=== PATIENT | male | born 1965 | race Two or more races ===

== ENCOUNTER 2025-03-06 01:26 | Emergency (ER) | payer MEDICAID, OTHER ==
[~2025-03-06] VITALS: Ht 185.4 cm; Wt 136.3 kg
[~2025-03-06 01:26] MED LIST: CAP125T; FURO40TA4; IBUP600T39; LOVA10TA54; MULT-13
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
[2025-03-06 01:45] LABS: Basophils # (auto) 0.1 10 ^3/uL (0-0.2); Basophils % (auto) 0.7 % (0.0-2.0); Eosinophils # (auto) 0.5 10 ^3/uL (0-0.8); Eosinophils % (auto) 4.9 % (0.0-7.0); Hematocrit 43.7 % (41.0-53.0); Hemoglobin 14.9 g/dL (13.5-17.5); Lymphocytes # (auto) 3.7 10 ^3/uL (0.4-5.4); Mean Corpuscular Hemoglobin 28.9 pg (28.0-32.0); Mean Corpuscular Hgb Conc. 34.2 g/dL (32.0-36.0); Mean Corpuscular Volume 84.4 fL (80.0-100.0); Monocytes # (auto) 0.6 10 ^3/uL (0-1.3); Monocytes % (auto) 5.6 % (0.0-12.0); Neutrophils # (auto) 5.6 10 ^3/uL (1.6-8.6); Neutrophils % (auto) 53.8 % (37.0-80.0); Nucleated Red Blood Cells % 0.2 %; Platelet Count (auto) 279 10^3/uL (140-450); Red Blood Cells 5.17 10^6/uL (4.5-5.90); Red Cell Distribution Width 14.5 % (11.8-14.3); White Blood Cell 10.4 10^3/uL (4.4-10.8)
[2025-03-06 02:05] LABS: Chloride 103 mmol/L (98-107); Potassium 3.6 mmol/L (3.5-5.1); Sodium 138 mmol/L (136-145)
[2025-03-06 02:06] LABS: Anion Gap 19 (5-15); Calcium 9.3 mg/dL (8.7-10.4)
[2025-03-06 02:10] LABS: Carbon Dioxide 16 mmol/L (20-31)
[2025-03-06 02:11] LABS: Glucose 179 mg/dL (74-106)
[2025-03-06 02:12] LABS: Blood Urea Nitrogen 16 mg/dL (9-23); Magnesium 1.6 mg/dL (1.6-2.6)
[2025-03-06 03:10] VITALS: BP 127/72; PULSE 83; RESP 19; TEMP 98.6
[2025-03-06] MEDS ORDERED: TRAZ1TAB12 PO (04:03)
[2025-03-06] MEDS ORDERED: HYDR50TA32 PO (04:03)
[2025-03-06] MEDS: LORazepam 2MG/ML-1ML VIAL IV ONE (04:26)
[2025-03-06] MEDS ORDERED: GABA300T4 PO (04:29)
[2025-03-06 04:34] VITALS: O2SAT 96
[2025-03-06] MEDS: GABAPENTIN 300 MG CAP PO ONE (04:44)
[2025-03-06] MEDS ORDERED: NIFE1TAB36 PO (04:44)
[2025-03-06] MEDS ORDERED: METO25TA93 PO (04:44)
== END 2025-03-06 04:51 | disposition home or self-care (01) ==
LOC: ER 01:26
DX: F43.0 Acute stress reaction (principal); I10 Essential (primary) hypertension; E78.5 Hyperlipidemia, unspecified; F32.A Depression, unspecified; F41.9 Anxiety disorder, unspecified; K21.9 Gastro-esophageal reflux disease without esophagitis; Z79.899 Other long term (current) drug therapy; Z98.890 Other specified postprocedural states
CPT/HCPCS: 36415; 80048; 83735; 84484; 85025

== ENCOUNTER 2025-03-07 13:56 | Inpatient (IN) | payer MEDICAID, OTHER ==
[~2025-03-07] VITALS: Ht 185.4 cm; Wt 150.0 kg
[~2025-03-07 13:56] MED LIST changes: +GABA300T4 PO; +HYDR50TA32 PO; +METO25TA93 PO; +NIFE1TAB36 PO; +TRAZ1TAB12 PO
[2025-03-07] MEDS: SODIUM CHLORIDE 0.9% 1,000 ML IV ONE (14:30)
[2025-03-07] MEDS: hydrALAZINE HCL 20 MG/ML VL IV ONE (14:30)
--- NOTE | 2025-03-07 14:51 | ED.PDOC ---
History of Present Illness HPI Comments 59-year-old male presents with a chief complaint of headache with dizziness and high blood pressure since this morning. Patient reports that his systolic blood pressure was in the 180's. States that he took his blood pressure medications as prescribed today. Chief Complaint: Headache Time Seen by MD: 14:11 Primary Care Provider: MONICA Reviewed Notes: Medications, Allergies Allergies: Uncoded Allergies: NASAL DECONGESTANT (Allergy, Mild, 05/06/11) Home Meds Active Scripts Nifedipine (Nifedipine ER) 30 Mg Tab, 30 MG PO DAILY for 90 Days, #90 TAB 3 Re fills Prov:PB OSORIO MD 03/06/25 Metoprolol Succinate (Metoprolol Succinate Er) 25 Mg Tab, 1 TAB PO DAILY, #90 TAB 3 Refills Prov:PB OSORIO MD 03/06/25 Gabapentin (Once-Daily) (Gabapentin) 300 Mg Tab, 300 MG PO Q6HP PRN, #90 TAB 3 Refills Prov:PB OSORIO MD 03/06/25 Hydroxyzine HCl (Hydroxyzine Hydrochloride) 50 Mg Tab, 50 MG PO QHSP PRN, #60 TAB Prov:PB OSORIO MD 03/06/25 Trazodone Hcl (Trazodone Hcl) 150 Mg Tab, 1 TAB PO QPM for 90 Days, #90 TAB 3 Refills Prov:PB OSORIO MD 03/06/25 Reported Medications Multiple Vitamins W/ Minerals (Vitamins & Minerals) Minerals Tab 05/06/11 Furosemide (Furosemide) 40 Mg Tab 05/06/11 Ibuprofen (Ibu) 600 Mg Tab 05/06/11 Lovastatin (Lovastatin) 10 Mg Tab 05/06/11 Captopril (Capoten) 12.5 Mg Tb 05/05/11 Information Source: Patient Mode of Arrival: Ambulatory Severity: Moderate Timing: Hours Duration: Since onset Prehospital treatment: None Past Medical History PAST MEDICAL HISTORY: Anxiety, Depression, GERD, High Lipids, HTN Family History Family History: Unknown Social History Smoker: Non-Smoker Alcohol: Occasionally Drugs: Denies Drug Use Lives In: Home Constitutional: denies: chills, diaphoresis, fatigue, fever, malaise, sweats, weakness, others EENTM: denies: blurred vision, double vision, ear bleeding, ear discharge, ear drainage, ear pain, ear ringing, eye pain, eye redness, hearing loss, mouth pain, mouth swelling, nasal discharge, nose bleeding, nose congestion, nose pain, photophobia, tearing, throat pain, throat swelling, voice changes, others Respiratory: denies: cough, hemoptysis, orthopnea, SOB at rest, shortness of breath, SOB with excertion, stridor, wheezing, others Cardiovascular: denies: chest pain, dizzy spells, diaphoresis, Dyspnea on exertion, edema, irregular heart beat, left arm pain, lightheadedness, palpitations, PND, syncope, others Gastrointestinal: denies: abdomen distended, abdominal pain, blood streaked bowels, constipated, diarrhea, dysphagia, difficulty swallowing, hematemesis, melena, nausea, poor appetite, poor fluid intake, rectal bleeding, rectal pain, vomiting, others Genitourinary: denies: burning, dysuria, flank pain, frequency, hematuria, in continence, penile discharge, penile sore, pain, testicle pain, testicle swelling, urgency, others Neurological: denies: dizziness, fainting, headache, left sided numbness, left sided weakness, numbness, paresthesia, pre-existing deficit, right sided numbness, right sided weakness, seizure, speech problems, tingling, tremors, weakness, others Musculoskeletal: denies: back pain, gout, joint pain, joint swelling, muscle pain, muscle stiffness, neck pain, others Integumetry: denies: bruises, change in color, change in hair/nails, dryness, laceration, lesions, lumps, rash, wounds, others Allergic/Immunocompromised: denies: Difficulty Healing, Frequent Infections, Hives, Itching, others Hematologic/Lymphatic: denies: anemia, blood clots, easy bleeding, easy bruising, swollen glands, others Endocrine: denies: excessive hunger, excessive sweating, excessive thirst, excessive urination, flushing, intolerance to cold, intolerance to heat, unexplained weight gain, unexplained weight loss, others Psychiatric: denies: anxiety, bipolar disorder, depression, hopeless, panic disorder, schizophrenia, sleepless, suicidal, others All Other Systems: Reviewed and Negative Physical Exam General Appearance: No Apparent Distress, Normal HEENT: Normal ENT Inspection, Pharynx Normal, TMs Normal Neck: Full Range of Motion, Non-Tender, Normal, Normal Inspection Respiratory: Chest Non-Tender, Lungs Clear, No Accessory Muscle Use, No Respiratory Distress, Normal Breath Sounds Cardiovascular: No Edema, No JVD, No Murmur, No Gallop, Normal Peripheral Pulses, Regular Rate/Rhythm Breast Exam: Deferred Gastrointestinal: No Organomegaly, Non Tender, No Pulsatile Mass, Normal Bowel Sounds, Soft Genitalia: Deferred Pelvic: Deferred Rectal: Deferred Extremities: No calf tenderness, Normal capillary refill, Normal inspection, Normal range of motion, Non-tender, No pedal edema Musculoskeletal : Apperance: Normal Neurologic: Alert, propagation manager II-XII nml as Tested, No Motor Deficits, Normal Affect, Normal Mood, No Sensory Deficits Cerebellar Function: Normal Reflexes: Normal Skin: Dry, Normal Color, Warm Lymphatic: No Adenopathy Was a procedure done? Was a procedure done?: No Differential Dx Considerations may include: CVA, migraine, ACS, TIA X-Ray, Labs, Meds, VS Vital Signs Date Time Temp Pulse Resp B/P (MAP) Pulse Ox O2 Delivery O2 Flow Rate FiO2 03/07/25 16:27 98.3 93 20 164/89 (114) 94 98.3 03/07/25 14:13 97.9 106 18 143/84 (103) 98 97.9 03/07/25 14:08 108 Lab Test 03/07/25 15:40 03/07/25 14:50 03/07/25 14:06 03/07/25 14:05 Range/Units Troponin I High Sensitivity 6 4 </=54 ng/L White Blood Count 9.3 4.4-10.8 10^3/uL Red Blood Count 5.00 4.5-5.90 10^6/uL Hemoglobin 14.8 13.5-17.5 g/dL Hematocrit 42.0 41.0-53.0 % Mean Corpuscular Volume 84.1 80.0-100.0 fL Mean Corpuscular Hemoglobin 29.6 28.0-32.0 pg Mean Corpuscular Hemoglobin Concent 35.2 32.0-36.0 g/dL Red Cell Distribution Width 14.6 H 11.8-14.3 % Platelet Count 336 140-450 10^3/uL Mean Platelet Volume 9.9 6.9-10.8 fL Neutrophils (%) (Auto) 59.5 37.0-80.0 % Lymphocytes (%) (Auto) 29.9 10.0-50.0 % Monocytes (%) (Auto) 6.6 0.0-12.0 % Eosinophils (%) (Auto) 3.3 0.0-7.0 % Basophils (%) (Auto) 0.7 0.0-2.0 % Neutrophils # (Auto) 5.5 1.6-8.6 10 ^3/uL Lymphocytes # (Auto) 2.8 0.4-5.4 10 ^3/uL Monocytes # (Auto) 0.6 0-1.3 10 ^3/uL Eosinophils # (Auto) 0.3 0-0.8 10 ^3/uL Basophils # (Auto) 0.1 0-0.2 10 ^3/uL Nucleated Red Blood Cells 0.8 % Sodium Level 141 136-145 mmol/L Potassium Level 3.9 3.5-5.1 mmol/L Chloride Level 107 98-107 mmol/L Carbon Dioxide Level 20 20-31 mmol/L Anion Gap 14 5-15 Blood Urea Nitrogen 15 9-23 mg/dL Creatinine 0.96 0.700-1.30 mg/dL Glomerular Filtration Rate Calc 90 >90 mL/min BUN/Creatinine Ratio 15.6 10.0-20.0 Serum Glucose 133 H 74-106 mg/dL Calcium Level 10.3 8.7-10.4 mg/dL Urine Color Yellow Yellow Urine Clarity Turbid H Clear Urine pH 5.5 5.0-9.0 Urine Specific [place] 1.027 1.001-1.035 Urine Protein Trace H Negative Urine Ketones 1+ H Negative Urine Blood Negative Negative /uL Urine Nitrite Negative Negative Urine Bilirubin Negative Negative Urine Urobilinogen Normal Negative mg/dL Urine Leukocyte Esterase Negative Negative /uL Urine RBC 1 0 - 3 /hpf Urine Microscopic WBC 3 0-3 /HPF Urine Squamous Epithelial Cells Few <5 /hpf Urine Bacteria None seen None Seen /hpf Urine Mucus Few None Seen Urine Glucose Normal Normal mg/dL POC Glucose 130 H 70-106 mg/dl Time of 1ST Reevaluation: 14:41 Reevaluation 1ST: Unchanged Patient Education/Counseling: Diagnosis, Treatment, Need For Follow Up Family Education/Counseling: No Family Present Departure 1 Departure Time of Disposition: 17:23 (Patient presented with headache and near-syncope today and should be admitted. Data: 1. I ordered and reviewed the result of at least 3 labs including a CBC, BMP, and troponin. 2. I independently interpreted the following tests: EKG which shows a normal sinus rhythm and a chest x-ray which shows benign chest and a CT head which shows benign brain.Risk:This patient has a high risk of morbidity due to further diagnostic testing or treatment and may suffer from an acute cardiac, neurologic, or infectious disorder. Rationale: Patient should be admitted to the hospital for further management.) Impression: Primary Impression: Near syncope Additional Impressions: Acute chest pain Shortness of breath Hypertensive urgency Disposition: ADMITTED INPATIENT Admit to: Med Surg Condition: Serious Critical Care Note Critical Care Time?: Yes Critical care comment: Hypertensive urgency Authorized and Performed by: Paola Boogie MD Total critical care time: Approximately 39 minutes Due to a high probability of clinically significant, life threatening deterioration, the patient required my highest level of preparedness to intervene emergently and I personally spent this critical care time directly and personally managing the patient. This critical care time included obtaining a history; examining the patient; pulse oximetry; ordering and review of studies; arranging urgent treatment with development of a management plan; evaluation of patient's response to treatment; frequent reassessment; and, discussions with other providers. This critical care time was performed to assess and manage the high probability of imminent, life-threatening deterioration that could result in multi-organ failure. It was exclusive of separately billable procedures and treating other patients and teaching time. Please see my other sections and the rest of the note for further information on patient assessment and treatment. Stability Stability form required: No Heart Score Heart Score: Heart Score Response (Comments) Value History Moderate Suspicious 1 EKG Repolarization Disturb 1 Age 45-64 1 Risk Factors 1 or 2 risk factors 1 Troponin Normal limit 0 Total 4 I personally scribed for PAOLA BOOGIE MD ([email or web address]) on 03/07/25 at 14:51. Electronically submitted by Tu Allen ([email or web address]). PAOLA BOOGIE MD Mar 07, 2025 14:51
--- NOTE | 2025-03-07 15:04 | DVH ---
CLINICAL INFORMATION: Hypertension. TECHNIQUE: Axial imaging was obtained through the brain without contrast. Coronal and sagittal reform atted images were obtained, reviewed, and stored. Images were reviewed in brain and bone windows. Al l CT scans at this medical facility are performed using dose modulation techniques as appropriate to a performed exam including the following: Automated exposure control was utilized; adjustment of the MA and/or KV according to patient size; and use of iterative reconstruction technique. CTDIvol = 67.1 1 mGy DLP = 1322.26 mGy-cm COMPARISON: None FINDINGS: There is no acute intracranial hemorrhage. No mass effect or midline shift. The ventricles and sulci are within normal limits in size for age. Basal cisterns are patent. The calvarium is unre markable. Mild mucosal thickening of the paranasal sinuses. IMPRESSION: No CT evidence of acute intracranial abnormality.
--- NOTE | 2025-03-07 15:05 | DVH ---
CHEST RADIOGRAPH Indication: htn Technique: Single frontal view of the chest was obtained Comparison: None FINDINGS: Lines and Tubes: None Lungs: No focal consolidation. Pleura: No effusion. No pneumothorax. Cardiomediastinal contours: Unremarkable Bones: Chronic right-sided rib fractures. IMPRESSION: No acute cardiopulmonary disease.
[2025-03-07 15:13] LABS: Potassium 3.9 mmol/L (3.5-5.1); Sodium 141 mmol/L (136-145)
[2025-03-07 15:14] LABS: Anion Gap 14 (5-15)
[2025-03-07 15:15] LABS: Calcium 10.3 mg/dL (8.7-10.4); Carbon Dioxide 20 mmol/L (20-31); Chloride 107 mmol/L (98-107)
[2025-03-07 15:20] LABS: BUN/Creatinine Ratio 15.6 (10.0-20.0); Blood Urea Nitrogen 15 mg/dL (9-23)
[2025-03-07 15:21] LABS: Glucose 133 mg/dL (74-106)
[2025-03-07 15:25] LABS: Basophils # (auto) 0.1 10 ^3/uL (0-0.2); Basophils % (auto) 0.7 % (0.0-2.0); Eosinophils # (auto) 0.3 10 ^3/uL (0-0.8); Eosinophils % (auto) 3.3 % (0.0-7.0); Hemoglobin 14.8 g/dL (13.5-17.5); Lymphocytes # (auto) 2.8 10 ^3/uL (0.4-5.4); Lymphocytes % (auto) 29.9 % (10.0-50.0); Mean Corpuscular Hemoglobin 29.6 pg (28.0-32.0); Mean Corpuscular Hgb Conc. 35.2 g/dL (32.0-36.0); Mean Corpuscular Volume 84.1 fL (80.0-100.0); Monocytes # (auto) 0.6 10 ^3/uL (0-1.3); Monocytes % (auto) 6.6 % (0.0-12.0); Neutrophils # (auto) 5.5 10 ^3/uL (1.6-8.6); Neutrophils % (auto) 59.5 % (37.0-80.0); Nucleated Red Blood Cells % 0.8 %; Platelet Count (auto) 336 10^3/uL (140-450); Red Cell Distribution Width 14.6 % (11.8-14.3); White Blood Cell 9.3 10^3/uL (4.4-10.8)
[2025-03-07 16:38] LABS: Urine Bacteria None Seen /hpf (None Seen)
[2025-03-07 17:13] LABS: Urine Blood Negative /uL (Negative); Urine Clarity Turbid (Clear); Urine Color Yellow (Yellow); Urine Mucus FEW (None Seen); Urine Protein, UAD TRACE (Negative); Urine Specific Gravity 1.027 (1.001-1.035); Urine Squamous Epithelial Cell FEW /hpf (<5); Urine Urobilinogen Normal (Negative); Urine WBC 3 /HPF (0-3); Urine pH 5.5 (5.0-9.0)
[2025-03-07] MEDS ORDERED: MORPHINE SULFATE INJ 2 MG/ml SYRG IV PRN (19:00)
[2025-03-07] MEDS ORDERED: NITROGLYCERIN 0.4 MG SL TAB SL PRN (19:00)
[2025-03-07] MEDS ORDERED: LISINOPRIL 5 MG TAB PO ONE (19:30)
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
[2025-03-07] MEDS: PANTOPRAZOLE 40 MG/10 ML VIAL INJ IV ONE (19:55)
[2025-03-07] MEDS: GABAPENTIN 300 MG CAP PO PRN (20:49)
[2025-03-07 21:12] LABS: Benzodiazephine Screen, Urine Neg (NEGATIVE)
[2025-03-07 21:13] LABS: Amphetamine Screen, Urine Neg (NEGATIVE); Barbiturate Scree,Urine Neg (NEGATIVE); Cocaine Screen, Urine Neg (NEGATIVE)
[2025-03-07 21:14] LABS: Cannabinoid Screen, Urine Neg (NEGATIVE); Opiate Scree,Urine Neg (NEGATIVE); Phencyclidine Screen, Urine Neg (NEGATIVE)
[2025-03-07] MEDS: ENOXAPARIN SOD 100 MG/1 ML SYRINGE SC SCH (22:00)
[2025-03-07] MEDS: traZODone HCL 50 MG TAB PO SCH (22:09)
[2025-03-07 22:39] VITALS: O2SAT 96
[2025-03-08] VITALS (7 sets, daily range): BP systolic 135–191; BP diastolic 76–98; PULSE 75–90; RESP 12–22; TEMP 97.4–98; O2SAT 92–99
[2025-03-08] MEDS: hydrALAZINE HCL 10 MG TAB PO PRN
[2025-03-08] MEDS: LISINOPRIL 5 MG TAB PO ONE
[2025-03-08] MEDS: PNEUMOCOCCAL VACC POLYS 25 MCG/0.5 ML VIAL IM ONE (01:30)
[2025-03-08] MEDS: ACETAMINOPHEN 325 MG TAB PO PRN (02:04)
[2025-03-08] MEDS: GABAPENTIN 300 MG CAP PO ONE (02:45)
[2025-03-08] MEDS: PANTOPRAZOLE 40 MG/10 ML VIAL INJ IV ONE (02:45)
[2025-03-08] MEDS: HYDROcodone-ACET 5/325MG TAB PO ONE ×2 (02:45→13:42)
[2025-03-08] MEDS: CALCIUM CARB 500 MG CHEW TAB PO ONE (03:01)
--- NOTE | 2025-03-08 06:49 | ECG ---
[facility] Test Date: 2025-03-07 Test Time: 14:08:00 Pat Name: TESSA JACKSNO Department: ER Room: 0276T Gender: M Deputy Director: TRIXIE : 1965 Requested By: PAOLA JOHNSON Order Number: [id number] Reading MD: Tejas Pablo Measurements Intervals [place] Rate: 108 P: 0 MI: 0 QRS: 144 QRSD: 90 T: -13 QT: 334 QTc: 448 Interpretive Statements Sinus tachycardia Abnormal R-wave progression, late transition Inferior infarct, age indeterminate Electronically Signed On 03-08-2025 17:41:11 PDT by Tejas Pablo Please click the below link to view image of tracing.
[2025-03-08] MEDS: HYDROcodone-ACET 5/325MG TAB PO PRN (08:41)
[2025-03-08] MEDS: PANTOPRAZOLE 40 MG/10 ML VIAL INJ IV SCH (09:58)
[2025-03-08] MEDS: METOPROLOL SUCCINATE XL 50 MG TAB PO SCH (09:59)
[2025-03-08] MEDS: NIFEdipine ER 30 MG TAB PO SCH (09:59)
[2025-03-08] MEDS: FUROSEMIDE 40 MG TAB PO SCH (09:59)
[2025-03-08] MEDS ORDERED: METF-371 PO (11:42)
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
[2025-03-08] MEDS: ACCU-CHEK COMFORT CURVE STRIP VI SCH ×2 (12:10→17:02)
[2025-03-08 14:00] LABS: LDL Cholesterol 105 mg/dL (< 100); Triglycerides 163 mg/dL (< 150)
[2025-03-08 14:01] LABS: Cholesterol 154 mg/dL (< 200)
[2025-03-08 14:03] LABS: HDL Cholesterol 31 mg/dL (40-59)
[2025-03-08 14:43] LABS: Albumin 4.7 g/dL (3.2-4.8); Alkaline Phosphatase 75 U/L (46-116); Total Protein 7.7 g/dL (5.7-8.2)
[2025-03-08 14:52] LABS: Alanine Aminotransferase 57 U/L (7-40); Aspartate Aminotransferase 36 U/L (<34); Bilirubin, Direct < 0.1 mg/dL (<0.3); Bilirubin, Total 0.3 mg/dL (0.2-1.0)
[2025-03-08] MEDS ORDERED: DEXTROSE (50%) 50ML SYRG IV PRN (15:15)
[2025-03-08] MEDS: LABETALOL HCL 20 MG/4 ML VL IV ONE (15:53)
[2025-03-08] MEDS ORDERED: CLON-857 PO (16:18)
[2025-03-08] MEDS ORDERED: clonazePAM 0.5 MG TAB PO PRN (16:30)
[2025-03-08] MEDS: InsuLIN REG 1unit/0.01ml Soln (100units/ml) SC SCH (17:08)
--- NOTE | 2025-03-08 20:01 | DVHPN2 ---
Subjective having some headaches but better Reviewed: H&P, Labs Changes from previous H/P or p: No Changes Objective Vitals Vital Signs Date Time Temp Pulse Resp B/P (MAP) Pulse Ox O2 Delivery O2 Flow Rate FiO2 03/08/25 16:20 97.8 75 17 137/76 (96) 97 97.8 03/08/25 01:05 Room Air* 0 21 Intake/Output Intake and Output 03/08/25 07:00 Intake Total 1000 ml Balance 1000 ml IV Total 1000 ml General Appearance: Alert, Oriented X3 HEENT: Atraumatic Lungs: Clear to auscultation Cardiovascular: Regular rate, Normal S1, Normal S2 Abdomen: Normal bowel sounds Medications Current Medications Medications Dose Ordered Sig/Heather Route Start Time Stop Time Status Last Admin Dose Admin Nitroglycerin 0.4 mg Q5MINP PRN SL 03/07/25 19:00 Morphine Sulfate 2 mg Q30M PRN IV 03/07/25 19:00 Furosemide 40 mg DAILY PO 03/08/25 10:00 03/08/25 09:59 40 MG Nifedipine 30 mg DAILY PO 03/08/25 10:00 03/08/25 09:59 30 MG Gabapentin 300 mg Q6HP PRN PO 03/07/25 19:30 03/08/25 15:21 300 MG Metoprolol Succinate 25 mg DAILY PO 03/08/25 10:00 03/08/25 09:59 25 MG Trazodone HCl 150 mg HS PO 03/07/25 22:00 Hydralazine HCl 10 mg Q6HP PRN PO 03/07/25 19:30 03/08/25 07:56 10 MG Enoxaparin Sodium 100 mg Q12HR SC 03/07/25 22:00 03/08/25 10:00 100 MG Pantoprazole Sodium 40 mg DAILY IV 03/08/25 10:00 03/08/25 09:58 40 MG Acetaminophen 650 mg Q4HPRN PRN PO 03/08/25 01:45 03/08/25 02:04 650 MG Acetaminophen/ Hydrocodone Bitart 1 tab Q6HPRN PRN PO 03/08/25 08:15 03/08/25 15:22 1 TAB Diagnostic Test (Pha) 1 strip ACHS 03/08/25 17:00 03/08/25 17:02 1 STRIP Insulin Human Regular ACHS SC 03/08/25 17:00 03/08/25 17:08 3 UNITS Dextrose 50 ml UD PRN IV 03/08/25 15:15 Clonazepam 1 mg Q8HP PRN PO 03/08/25 16:45 Laboratory Results Laboratory Tests 03/07/25 14:50 Chemistry Test 03/08/25 13:28 Albumin 4.7 g/dL (3.2-4.8) Total Protein 7.7 g/dL (5.7-8.2) Lipid panel Test 03/08/25 13:28 Cholesterol Level 154 mg/dL (< 200) HDL Cholesterol 31 mg/dL (40-59) L Triglycerides Level 163 mg/dL (< 150) H LFT Test 03/08/25 13:28 Alanine Aminotransferase (ALT) 57 U/L (7-40) H Alkaline Phosphatase 75 U/L (46-116) Aspartate Amino Transferase (AST) 36 U/L (<34) H Direct Bilirubin < 0.1 mg/dL (<0.3) Total Bilirubin 0.3 mg/dL (0.2-1.0) Urinalysis Test 03/07/25 14:06 Urine Color Yellow (Yellow) Urine Clarity Turbid (Clear) H Urine pH 5.5 (5.0-9.0) Urine Specific [place] 1.027 (1.001-1.035) Urine Protein Trace (Negative) H Urine Ketones 1+ (Negative) H Urine Blood Negative /uL (Negative) Urine Nitrite Negative (Negative) Urine Bilirubin Negative (Negative) Urine Urobilinogen Normal mg/dL (Negative) Urine Leukocyte Esterase Negative /uL (Negative) Urine RBC 1 /hpf (0 - 3) Urine Microscopic WBC 3 /HPF (0-3) Urine Squamous Epithelial Cells Few /hpf (<5) Urine Bacteria None seen /hpf (None Seen) Urine Mucus Few (None Seen) Urine Glucose Normal mg/dL (Normal) Assessment/Plan Assessment/Plan Hypertensive Emergency Severe headache secondary to above Diabetes mellitus, GERD Sciatica New AFIB, patient unware of this diagnosis - [id number] : 2 in a male Morbid obesity, BMI: 42 ? CHF Insulin per protocol Cardiology consulted echo pending continue oral nifedipine, metoprolol, lasix Plan discussed with: Patient My Orders Orders - GUALBERTO TRIANA MD Procedure Category Date Status Time Ac Mild Insulin Scale ZANE 03/08/25 In Process (Not Rx) 11:36 Glucose Blood PHA 03/08/25 In Process (Accu-Chek Comfort 17:00 Insulin R (Human) PHA 03/08/25 In Process (Insulin R) 17:00 Dextrose 50% Syringe PHA 03/08/25 In Process 15:15 Clonazepam Tablet PHA 03/08/25 In Process (Klonopin Tablet) 16:45 Date of Service: Mar 08, 2025 Billing Provider: GUALBERTO TRIANA MD Common Visit Codes: [id number] INP/OBS CARE(HIGH) GUALBERTO TRIANA MD Mar 08, 2025 20:01
[2025-03-09] VITALS (8 sets, daily range): BP systolic 122–158; BP diastolic 57–90; PULSE 70–110; RESP 17–19; TEMP 97.5–98.6; O2SAT 93–96
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
[2025-03-09] MEDS: clonazePAM 0.5 MG TAB PO PRN (03:38)
[2025-03-09] MEDS: REGADENOSON 0.4 MG/5 ML SYRG IV ONE ×2 (08:53→09:08)
--- NOTE | 2025-03-09 09:05 | DVHSR ---
APPROVED REPORT EXAM: Two-dimensional and M-mode echocardiogram with Doppler and color Doppler. Blood Pressure: 135/77 mmHg INDICATION CHF RISK FACTORS Height: 71, Weight: 318 DIMENSIONS LVDd (3.8-5.7cm)LA (2D)4.3 (1.9-4.0cm)Aortic Root4.3 (2.0-3.7cm) LVDs (2.5-4.0cm)LA (MM) (1.9-4.0cm)Aortic Cusp Exc1.9 (1.5-2.0cm) EF (%) 61.0 (55-70%)Rt. Atrium3.5 (1.9-4.0cm)Asc. Aorta cm Mitral Valve MitralMitral Stenosis E wave0.71m/sMV Mean GR.mmHg A wave1.02m/sMV Peak GR.mmHg E/A ratio0.72D MVAcm2 DECEL [id number] 1/2 [id number] IVRTmsDop MVA3.14cm2 Aortic Valve Aortic ValveAortic Stenosis V11.61m/Ba Mean GR.5mmHg V21.65m/Ba Peak GR.11mmHg LVOT Diameter2.4 (1.8-2.4cm)Doppler AVA4.41cm2 Pulmonic Valve V21.35m/s Other Information Technically limited study due to body habitus. Conclusion LV EF IS 65% SLIGHTLY DILATED LA AORTIC SCLEROSIS BUT NO STENOSIS NORMAL MV,TV AND PV NO EFFUSION NORMAL RV FUNCTION
[2025-03-09 11:41] LABS: Hepatitis B Surface Antigen Negative (Negative); Hepatitis C Antibody Negative (Negative)
--- NOTE | 2025-03-09 16:17 | DVHPN2 ---
Subjective having some headaches but better Reviewed: H&P, Labs Changes from previous H/P or p: No Changes Objective Vitals Vital Signs Date Time Temp Pulse Resp B/P (MAP) Pulse Ox O2 Delivery O2 Flow Rate FiO2 03/09/25 12:45 97.7 110 17 128/76 (93) 94 97.7 03/09/25 08:00 Room Air* 0 21 Intake/Output Intake and Output 03/09/25 07:00 Intake Total 1900 ml Balance 1900 ml Intake Oral 1900 ml # Voids 7 # Bowel Movements 1 General Appearance: Alert, Oriented X3 HEENT: Atraumatic Lungs: Clear to auscultation Cardiovascular: Regular rate, Normal S1, Normal S2 Abdomen: Normal bowel sounds Medications Current Medications Medications Dose Ordered Sig/Heather Route Start Time Stop Time Status Last Admin Dose Admin Nitroglycerin 0.4 mg Q5MINP PRN SL 03/07/25 19:00 Morphine Sulfate 2 mg Q30M PRN IV 03/07/25 19:00 Furosemide 40 mg DAILY PO 03/08/25 10:00 03/09/25 09:52 40 MG Nifedipine 30 mg DAILY PO 03/08/25 10:00 03/09/25 09:52 30 MG Gabapentin 300 mg Q6HP PRN PO 03/07/25 19:30 03/08/25 15:21 300 MG Metoprolol Succinate 25 mg DAILY PO 03/08/25 10:00 03/09/25 09:52 25 MG Trazodone HCl 150 mg HS PO 03/07/25 22:00 03/08/25 23:53 150 MG Hydralazine HCl 10 mg Q6HP PRN PO 03/07/25 19:30 03/08/25 07:56 10 MG Enoxaparin Sodium 100 mg Q12HR SC 03/07/25 22:00 03/09/25 09:51 100 MG Pantoprazole Sodium 40 mg DAILY IV 03/08/25 10:00 03/09/25 09:51 40 MG Acetaminophen 650 mg Q4HPRN PRN PO 03/08/25 01:45 03/09/25 09:53 650 MG Acetaminophen/ Hydrocodone Bitart 1 tab Q6HPRN PRN PO 03/08/25 08:15 03/08/25 22:07 1 TAB Diagnostic Test (Pha) 1 strip ACHS 03/08/25 17:00 03/09/25 11:45 1 STRIP Insulin Human Regular ACHS SC 03/08/25 17:00 03/09/25 11:45 4 UNITS Dextrose 50 ml UD PRN IV 03/08/25 15:15 Clonazepam 1 mg Q8HP PRN PO 03/08/25 16:45 03/09/25 03:38 1 MG Laboratory Results Laboratory Tests 03/07/25 14:50 Urinalysis Test 03/07/25 14:06 Urine Color Yellow (Yellow) Urine Clarity Turbid (Clear) H Urine pH 5.5 (5.0-9.0) Urine Specific [place] 1.027 (1.001-1.035) Urine Protein Trace (Negative) H Urine Ketones 1+ (Negative) H Urine Blood Negative /uL (Negative) Urine Nitrite Negative (Negative) Urine Bilirubin Negative (Negative) Urine Urobilinogen Normal mg/dL (Negative) Urine Leukocyte Esterase Negative /uL (Negative) Urine RBC 1 /hpf (0 - 3) Urine Microscopic WBC 3 /HPF (0-3) Urine Squamous Epithelial Cells Few /hpf (<5) Urine Bacteria None seen /hpf (None Seen) Urine Mucus Few (None Seen) Urine Glucose Normal mg/dL (Normal) Assessment/Plan Assessment/Plan Hypertensive Emergency Severe headache secondary to above Diabetes mellitus, GERD Sciatica New AFIB, patient unware of this diagnosis - [id number] : 2 in a male Morbid obesity, BMI: 42 ? CHF Insulin per protocol Cardiology consulted>stress test today echo reviewed and normal EF continue oral nifedipine, metoprolol, lasix Dispo: Possible DC tomorrow if stress test negative and cardio clears Plan discussed with: Patient My Orders Orders - GUALBERTO TRIANA MD Procedure Category Date Status Time Clonazepam Tablet PHA 03/08/25 In Process (Klonopin Tablet) 16:45 Date of Service: Mar 09, 2025 Billing Provider: GUALBERTO TRIANA MD Common Visit Codes: [id number] INP/OBS CARE(HIGH) GUALBERTO TRIANA MD Mar 09, 2025 16:17
--- NOTE | 2025-03-09 17:16 | DVHPNRES ---
Progress Note Date Seen: Mar 09, 2025 Resident Creating Document: MARTHA SINGH RESIDENT Medical Necessity Reason Pt with a Central, PICC or Fol: No Subjective Review of Systems Improvement in symptoms, denies any active ongoing palpitations or shortness of Breath. Objective vital signs Vital Sign Date Time Temp Pulse Resp B/P (MAP) Pulse Ox O2 Delivery O2 Flow Rate FiO2 03/09/25 16:35 97.8 83 17 122/77 (92) 93 97.8 03/09/25 08:00 Room Air* 0 21 Total Intake and Output 03/08/25 03/08/25 03/09/25 15:00 23:00 07:00 Intake Total 1000 ml 900 ml Balance 1000 ml 900 ml medications Current Medications Medications Dose Ordered Sig/Heather Route Start Time Stop Time Status Last Admin Dose Admin Nitroglycerin 0.4 mg Q5MINP PRN SL 03/07/25 19:00 Morphine Sulfate 2 mg Q30M PRN IV 03/07/25 19:00 Furosemide 40 mg DAILY PO 03/08/25 10:00 03/09/25 09:52 40 MG Nifedipine 30 mg DAILY PO 03/08/25 10:00 03/09/25 09:52 30 MG Gabapentin 300 mg Q6HP PRN PO 03/07/25 19:30 03/08/25 15:21 300 MG Metoprolol Succinate 25 mg DAILY PO 03/08/25 10:00 03/09/25 09:52 25 MG Trazodone HCl 150 mg HS PO 03/07/25 22:00 03/08/25 23:53 150 MG Hydralazine HCl 10 mg Q6HP PRN PO 03/07/25 19:30 03/08/25 07:56 10 MG Enoxaparin Sodium 100 mg Q12HR SC 03/07/25 22:00 03/09/25 09:51 100 MG Pantoprazole Sodium 40 mg DAILY IV 03/08/25 10:00 03/09/25 09:51 40 MG Acetaminophen 650 mg Q4HPRN PRN PO 03/08/25 01:45 03/09/25 09:53 650 MG Acetaminophen/ Hydrocodone Bitart 1 tab Q6HPRN PRN PO 03/08/25 08:15 03/08/25 22:07 1 TAB Diagnostic Test (Pha) 1 strip ACHS 03/08/25 17:00 03/09/25 16:38 1 STRIP Insulin Human Regular ACHS SC 03/08/25 17:00 03/09/25 16:39 2 UNITS Dextrose 50 ml UD PRN IV 03/08/25 15:15 Clonazepam 1 mg Q8HP PRN PO 03/08/25 16:45 03/09/25 03:38 1 MG Examination General Appearance: Cooperative. Well developed. Well nourished. NAD Head Exam: Normal inspection Neck Exam: Normal inspection. Non-tender. Normal alignment Pulmonary/Respiratory: Chest non-tender. Clear bilateral breath sounds, no crackles, no wheezing. Cardiovascular/Chest: Regular rate and rhythm. No murmurs. Peripheral Pulses: 2+ Radial (R). 2+ Radial (L). 2+ Pedal (R). 2+ Pedal (L) Abdominal Exam: Normal bowel sounds. Soft. normal abdomen, no visible veins, Nontender. No hepatospenomegaly. No masses Ankle Exam: Negative ankle edema Lower extremities: 1+ lower extremity edema Neuro/Mental Status: A&O x4. Coherent. Thoughts/Psych: Normal thought pattern. Sad affect, tearful affect. Denies any suicidal or homicidal ideation Skin Exam: Normal inspection. Normal color. Warm. Dry laboratory and microbiology Laboratory Tests 03/07/25 14:50 Test 03/07/25 14:50 Range/Units Serum Glucose 133 H 74-106 mg/dL Labs and/or images reviewed: Labs reviewed by me, Image(s) reviewed by me Problem List/Assessment/Plan Problem List/Assessment/Plan Hypertensive emergency Type 2 diabetes, A1c 8.4 ASCVD 39.8% Plan: Patient was noted to be in normal sinus rhythm, EKG machine read as atrial fibrillation, however, patient continues to be in normal sinus rhythm with highest heart rate 108. EKG does show some right axis deviation Underwent stress test (Lexiscan) 03/09/25 AM; preliminary results negative for ischemia Patient completed stress test in 2002 which was unremarkable at the time Continue metoprolol succinate, nifedipine Outpatient sleep study recommended Echocardiogram Optimal diabetes management Discontinued therapeutic Lovenox, can consider prophylactic Lovenox if patient not ambulatory Thank you so much for the opportunity to consult on your patient. Cardiology team will follow the patient. In case of any questions or concerns please feel free to reach out. Plan discussed with Dr. Giles Plan discussed with: Patient, Other (RN) My Orders My Orders Orders - MARTHA SINGH Procedure Category Date Status Time Cardiolite Multiple NM 03/08/25 Taken 21:40 Visit Coding Cardiology RES Date of Service: Mar 09, 2025 Billing Provider: MARTHA SINGH Cardiology Common Codes: [id number] HOSP CARE(High MARTHA SINGH RESIDENT Mar 09, 2025 17:16
--- NOTE | 2025-03-09 17:58 | DVHPN2 ---
Consult Progress Note Date Seen: Mar 09, 2025 Subjective Other Systems: Patient was seen and evaluated in follow up. Patient reports improvement in symptoms, denies any active ongoing palpitations or shortness of breath. BS in the 140's. Underwent stress test (Lexiscan) 03/09/25 AM: preliminary results negative for ischemia. Telemetry reviewed. Objective vital signs Vital Sign Date Time Temp Pulse Resp B/P (MAP) Pulse Ox O2 Delivery O2 Flow Rate FiO2 03/09/25 16:35 97.8 83 17 122/77 (92) 93 97.8 03/09/25 08:00 Room Air* 0 21 Total Intake and Output 03/08/25 03/08/25 03/09/25 15:00 23:00 07:00 Intake Total 1000 ml 900 ml Balance 1000 ml 900 ml medications Current Medications Medications Dose Ordered Sig/Heather Route Start Time Stop Time Status Last Admin Dose Admin Nitroglycerin 0.4 mg Q5MINP PRN SL 03/07/25 19:00 Morphine Sulfate 2 mg Q30M PRN IV 03/07/25 19:00 Furosemide 40 mg DAILY PO 03/08/25 10:00 03/09/25 09:52 40 MG Nifedipine 30 mg DAILY PO 03/08/25 10:00 03/09/25 09:52 30 MG Gabapentin 300 mg Q6HP PRN PO 03/07/25 19:30 03/08/25 15:21 300 MG Metoprolol Succinate 25 mg DAILY PO 03/08/25 10:00 03/09/25 09:52 25 MG Trazodone HCl 150 mg HS PO 03/07/25 22:00 03/08/25 23:53 150 MG Hydralazine HCl 10 mg Q6HP PRN PO 03/07/25 19:30 03/08/25 07:56 10 MG Enoxaparin Sodium 100 mg Q12HR SC 03/07/25 22:00 Hold 03/09/25 09:51 100 MG Pantoprazole Sodium 40 mg DAILY IV 03/08/25 10:00 03/09/25 09:51 40 MG Acetaminophen 650 mg Q4HPRN PRN PO 03/08/25 01:45 03/09/25 09:53 650 MG Acetaminophen/ Hydrocodone Bitart 1 tab Q6HPRN PRN PO 03/08/25 08:15 03/08/25 22:07 1 TAB Diagnostic Test (Pha) 1 strip ACHS 03/08/25 17:00 03/09/25 16:38 1 STRIP Insulin Human Regular ACHS SC 03/08/25 17:00 03/09/25 16:39 2 UNITS Dextrose 50 ml UD PRN IV 03/08/25 15:15 Clonazepam 1 mg Q8HP PRN PO 03/08/25 16:45 03/09/25 03:38 1 MG Examination: GENERAL:Normal, HEENT:Normal, NECK:Normal, LUNGS:Normal, CVS:Normal, ABDOMEN:Normal, MSK:Abnormal (1+ lower extremity edema), SKIN:Normal, NEURO:Normal laboratory and microbiology Laboratory Tests 03/07/25 14:50 Test 03/07/25 14:50 Range/Units Serum Glucose 133 H 74-106 mg/dL Problem List/Assessment/Plan Problem List/Assessment/Plan Assessment Hypertensive emergency. Type 2 diabetes, A1c 8.4. ASCVD 39.8%. Plan/Recommendation I agree with your ongoing assessment and care of plan. Patient has been seen by Javier Malhotra, resident on my behalf. We have discussed the plan with the patient. Patient was noted to be in normal sinus rhythm, EKG machine read as atrial fibrillation, however, patient continues to be in normal sinus rhythm with highest heart rate 108. EKG does show some right axis deviation. Underwent stress test (Lexiscan) 03/09/25 AM; preliminary results negative for ischemia. Patient completed stress test in 2002 which was unremarkable at the time. Continue metoprolol succinate, nifedipine. Outpatient sleep study recommended. Echocardiogram. Optimal diabetes management. Discontinued therapeutic Lovenox, can consider prophylactic Lovenox if patient not ambulatory. Additional plan as per the hospital course. Plan discussed with: Patient Date of Service: Mar 09, 2025 Billing Provider: DEIDRA AHN MD Cardiology Common Codes: [id number] INP/OBS CARE (High) DEIDRA AHN MD Mar 09, 2025 17:33
[2025-03-10] VITALS (8 sets, daily range): BP systolic 116–160; BP diastolic 43–89; PULSE 52–99; RESP 16–18; TEMP 97.5–98.5; O2SAT 93–97
--- NOTE | 2025-03-10 11:48 | DVHPN2 ---
Subjective The patient is seen and examined at bedside. Complain of back pain and right- sided abdominal pain. Complained that the pain in the back radiating to the leg bilateral. Reviewed: Care Plan, H&P, Labs, Medications, Previous Orders, Radiology Changes from previous H/P or p: No Changes Objective Vitals Vital Signs Date Time Temp Pulse Resp B/P (MAP) Pulse Ox O2 Delivery O2 Flow Rate FiO2 03/10/25 09:50 116/43 03/10/25 09:49 90 03/10/25 08:50 97.8 18 94 97.8 03/09/25 20:00 Room Air* 0 21 Intake/Output Intake and Output 03/10/25 07:00 Intake Total 1600 ml Output Total 300 ml Balance 1300 ml Intake Oral 1600 ml Output Urine Total 300 ml # Voids 1 General Appearance: Alert, Oriented X3 HEENT: Atraumatic, PERRLA, EOMI, Mucous membr. moist/pink Neck: Supple Lungs: Clear to auscultation Cardiovascular: Regular rate, Normal S1, Normal S2 Abdomen: Normal bowel sounds, Soft, No tenderness Neuro: Cranial nerves 3-12 NL Psych/Mental Status: Mental status NL Medications Current Medications Medications Dose Ordered Sig/Heather Route Start Time Stop Time Status Last Admin Dose Admin Nitroglycerin 0.4 mg Q5MINP PRN SL 03/07/25 19:00 Morphine Sulfate 2 mg Q30M PRN IV 03/07/25 19:00 Furosemide 40 mg DAILY PO 03/08/25 10:00 03/10/25 09:50 40 MG Nifedipine 30 mg DAILY PO 03/08/25 10:00 03/10/25 09:48 30 MG Gabapentin 300 mg Q6HP PRN PO 03/07/25 19:30 03/09/25 23:10 300 MG Metoprolol Succinate 25 mg DAILY PO 03/08/25 10:00 03/10/25 09:49 25 MG Trazodone HCl 150 mg HS PO 03/07/25 22:00 03/09/25 22:37 150 MG Hydralazine HCl 10 mg Q6HP PRN PO 03/07/25 19:30 03/08/25 07:56 10 MG Enoxaparin Sodium 100 mg Q12HR SC 03/07/25 22:00 Hold 03/09/25 09:51 100 MG Pantoprazole Sodium 40 mg DAILY IV 03/08/25 10:00 03/10/25 09:50 40 MG Acetaminophen 650 mg Q4HPRN PRN PO 03/08/25 01:45 03/09/25 09:53 650 MG Acetaminophen/ Hydrocodone Bitart 1 tab Q6HPRN PRN PO 03/08/25 08:15 03/09/25 22:36 1 TAB Diagnostic Test (Pha) 1 strip ACHS 03/08/25 17:00 03/10/25 11:34 1 STRIP Insulin Human Regular ACHS SC 03/08/25 17:00 03/10/25 11:08 3 UNITS Dextrose 50 ml UD PRN IV 03/08/25 15:15 Clonazepam 1 mg Q8HP PRN PO 03/08/25 16:45 03/10/25 00:11 1 MG Laboratory Results Laboratory Tests 03/07/25 14:50 Urinalysis Test 03/07/25 14:06 Urine Color Yellow (Yellow) Urine Clarity Turbid (Clear) H Urine pH 5.5 (5.0-9.0) Urine Specific [place] 1.027 (1.001-1.035) Urine Protein Trace (Negative) H Urine Ketones 1+ (Negative) H Urine Blood Negative /uL (Negative) Urine Nitrite Negative (Negative) Urine Bilirubin Negative (Negative) Urine Urobilinogen Normal mg/dL (Negative) Urine Leukocyte Esterase Negative /uL (Negative) Urine RBC 1 /hpf (0 - 3) Urine Microscopic WBC 3 /HPF (0-3) Urine Squamous Epithelial Cells Few /hpf (<5) Urine Bacteria None seen /hpf (None Seen) Urine Mucus Few (None Seen) Urine Glucose Normal mg/dL (Normal) Labs and/or images reviewed: Labs reviewed by me Assessment/Plan Assessment/Plan Hypertensive Emergency Severe headache secondary to above Diabetes mellitus, GERD Sciatica nerve New AFIB, patient unware of this diagnosis - [id number] : 2 in a male Morbid obesity, BMI: 42 ? CHF Insulin per protocol Cardiology consulted>stress test today echo reviewed and normal EF continue oral nifedipine, metoprolol, lasix Continuing with pain medication. I probably will give him some short-term steroid to see if this help with the sciatic nerve. We will order an x-ray of lumbar spine. Waiting for Stress test to be done. Discharge planning. This medical document was created using an electronic medical record system with [employer] direct computerized dictation system. Although this document has been carefully reviewed, there may still be some phonetic and typographical errors. These areas are purely typographical due to imperfections of the software programs, and do not reflect any compromise in the patient's medical care. Plan discussed with: Patient Date of Service: Mar 10, 2025 Billing Provider: GREGORY PACHECO MD Common Visit Codes: [id number] INP/OBS CARE(HIGH) GREGORY PACHECO MD Mar 10, 2025 11:48
--- NOTE | 2025-03-10 12:15 | DVHPNRES ---
Progress Note Date Seen: Mar 10, 2025 Resident Creating Document: MARTHA SINGH RESIDENT Medical Necessity Reason Pt with a Central, PICC or Fol: No Subjective Review of Systems Patient seen and examined at bedside. Notes improvement in general symptoms. Continues to have a sad and tearful affect. Objective vital signs Vital Sign Date Time Temp Pulse Resp B/P (MAP) Pulse Ox O2 Delivery O2 Flow Rate FiO2 03/10/25 09:50 116/43 03/10/25 09:49 90 03/10/25 08:50 97.8 18 94 97.8 03/09/25 20:00 Room Air* 0 21 Total Intake and Output 03/09/25 03/09/25 03/10/25 15:00 23:00 07:00 Intake Total 800 ml 800 ml Output Total 300 ml Balance 500 ml 800 ml medications Current Medications Medications Dose Ordered Sig/Heather Route Start Time Stop Time Status Last Admin Dose Admin Nitroglycerin 0.4 mg Q5MINP PRN SL 03/07/25 19:00 Morphine Sulfate 2 mg Q30M PRN IV 03/07/25 19:00 Furosemide 40 mg DAILY PO 03/08/25 10:00 03/10/25 09:50 40 MG Nifedipine 30 mg DAILY PO 03/08/25 10:00 03/10/25 09:48 30 MG Gabapentin 300 mg Q6HP PRN PO 03/07/25 19:30 03/09/25 23:10 300 MG Metoprolol Succinate 25 mg DAILY PO 03/08/25 10:00 03/10/25 09:49 25 MG Trazodone HCl 150 mg HS PO 03/07/25 22:00 03/09/25 22:37 150 MG Hydralazine HCl 10 mg Q6HP PRN PO 03/07/25 19:30 03/08/25 07:56 10 MG Enoxaparin Sodium 100 mg Q12HR SC 03/07/25 22:00 Hold 03/09/25 09:51 100 MG Pantoprazole Sodium 40 mg DAILY IV 03/08/25 10:00 03/10/25 09:50 40 MG Acetaminophen 650 mg Q4HPRN PRN PO 03/08/25 01:45 03/09/25 09:53 650 MG Acetaminophen/ Hydrocodone Bitart 1 tab Q6HPRN PRN PO 03/08/25 08:15 03/09/25 22:36 1 TAB Diagnostic Test (Pha) 1 strip ACHS 03/08/25 17:00 03/10/25 11:34 1 STRIP Insulin Human Regular ACHS SC 03/08/25 17:00 03/10/25 11:08 3 UNITS Dextrose 50 ml UD PRN IV 03/08/25 15:15 Clonazepam 1 mg Q8HP PRN PO 03/08/25 16:45 03/10/25 00:11 1 MG Examination General Appearance: Cooperative. Well developed. Well nourished. NAD Head Exam: Normal inspection Neck Exam: Normal inspection. Non-tender. Normal alignment Pulmonary/Respiratory: Chest non-tender. Clear bilateral breath sounds, no crackles, no wheezing. Cardiovascular/Chest: Regular rate and rhythm. No murmurs. Peripheral Pulses: 2+ Radial (R). 2+ Radial (L). 2+ Pedal (R). 2+ Pedal (L) Abdominal Exam: Normal bowel sounds. Soft. normal abdomen, no visible veins, Nontender. No hepatospenomegaly. No masses Ankle Exam: Negative ankle edema Lower extremities: 1+ lower extremity edema Neuro/Mental Status: A&O x4. Coherent. Thoughts/Psych: Normal thought pattern. Sad affect, tearful affect. Denies any suicidal or homicidal ideation Skin Exam: Normal inspection. Normal color. Warm. Dry laboratory and microbiology Laboratory Tests 03/07/25 14:50 Test 03/07/25 14:50 Range/Units Serum Glucose 133 H 74-106 mg/dL Labs and/or images reviewed: Labs reviewed by me, Image(s) reviewed by me Problem List/Assessment/Plan Problem List/Assessment/Plan Hypertensive emergency Type 2 diabetes, A1c 8.4 ASCVD 39.8% Plan: Patient was noted to be in normal sinus rhythm, EKG machine read as atrial fibrillation, however, patient continues to be in normal sinus rhythm with highest heart rate 108. EKG does show some right axis deviation Underwent stress test (Lexiscan) 03/09/25 AM; preliminary results negative for ischemia Patient completed stress test in 2002 which was unremarkable at the time Continue metoprolol succinate, nifedipine Outpatient sleep study recommended Echocardiogram Optimal diabetes management Discontinued therapeutic Lovenox, can consider prophylactic Lovenox if patient not ambulatory Outpatient follow up with cardiology recommended Thank you so much for the opportunity to consult on your patient. Cardiology team will follow the patient. In case of any questions or concerns please feel free to reach out. Plan discussed with Dr. Ahn Plan discussed with: Patient, Other (RN) Visit Coding Cardiology RES Date of Service: Mar 10, 2025 Billing Provider: DEIDRA AHN MD Cardiology Common Codes: [id number] [facility] Mar 10, 2025 12:14
--- NOTE | 2025-03-10 16:16 | DVH ---
CLINICAL INDICATION: back pain TECHNIQUE: 2 radiographic views of the lumbar spine were obtained. Comparison: None FINDINGS/IMPRESSION: There is no evidence of acute fracture or dislocation. Bony spondylosis and degenerative disc changes throughout the lumbar spine worse at L4-5 and L5-S1. T here are no compressed vertebra. The alignment is anatomical. There is no radiopaque foreign body. HS:Y
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
--- NOTE | 2025-03-10 23:00 | DVHPN2 ---
Consult Progress Note Date Seen: Mar 10, 2025 Subjective Other Systems: Patient was seen and evaluated in follow up. Patient reports improvement in general symptoms. Patient continues to have a sad and tearful affect. BS in the 170s. L-spine x-ray shows bony spondylosis and degenerative disc changes throughout the lumbar spine worse at L4-5 and L5-S1. Telemetry reviewed. Objective vital signs Vital Sign Date Time Temp Pulse Resp B/P (MAP) Pulse Ox O2 Delivery O2 Flow Rate FiO2 03/10/25 13:01 97.5 91 18 147/75 (99) 97 97.5 03/09/25 20:00 Room Air* 0 21 Total Intake and Output 03/09/25 03/09/25 03/10/25 15:00 23:00 07:00 Intake Total 800 ml 800 ml Output Total 300 ml Balance 500 ml 800 ml medications Current Medications Medications Dose Ordered Sig/Heather Route Start Time Stop Time Status Last Admin Dose Admin Nitroglycerin 0.4 mg Q5MINP PRN SL 03/07/25 19:00 Morphine Sulfate 2 mg Q30M PRN IV 03/07/25 19:00 Furosemide 40 mg DAILY PO 03/08/25 10:00 03/10/25 09:50 40 MG Nifedipine 30 mg DAILY PO 03/08/25 10:00 03/10/25 09:48 30 MG Gabapentin 300 mg Q6HP PRN PO 03/07/25 19:30 03/09/25 23:10 300 MG Metoprolol Succinate 25 mg DAILY PO 03/08/25 10:00 03/10/25 09:49 25 MG Trazodone HCl 150 mg HS PO 03/07/25 22:00 03/09/25 22:37 150 MG Hydralazine HCl 10 mg Q6HP PRN PO 03/07/25 19:30 03/08/25 07:56 10 MG Enoxaparin Sodium 100 mg Q12HR SC 03/07/25 22:00 Hold 03/09/25 09:51 100 MG Pantoprazole Sodium 40 mg DAILY IV 03/08/25 10:00 03/10/25 09:50 40 MG Acetaminophen 650 mg Q4HPRN PRN PO 03/08/25 01:45 03/09/25 09:53 650 MG Acetaminophen/ Hydrocodone Bitart 1 tab Q6HPRN PRN PO 03/08/25 08:15 03/09/25 22:36 1 TAB Diagnostic Test (Pha) 1 strip ACHS 03/08/25 17:00 03/10/25 11:34 1 STRIP Insulin Human Regular ACHS SC 03/08/25 17:00 03/10/25 11:08 3 UNITS Dextrose 50 ml UD PRN IV 03/08/25 15:15 Clonazepam 1 mg Q8HP PRN PO 03/08/25 16:45 03/10/25 00:11 1 MG Examination: GENERAL:Normal, HEENT:Normal, NECK:Normal, LUNGS:Normal, CVS:Normal, ABDOMEN:Normal, MSK:Abnormal (1+ lower extremity edema), SKIN:Normal laboratory and microbiology Laboratory Tests 03/07/25 14:50 Test 03/07/25 14:50 Range/Units Serum Glucose 133 H 74-106 mg/dL Problem List/Assessment/Plan Problem List/Assessment/Plan Assessment Hypertensive emergency. Type 2 diabetes, A1c 8.4. ASCVD 39.8%. Plan/Recommendation I agree with your ongoing assessment and care of plan. Patient has been seen by Javier Malhotra, resident on my behalf. We have discussed the plan with the patient. Patient was noted to be in normal sinus rhythm, EKG machine read as atrial fibrillation, however, patient continues to be in normal sinus rhythm with highest heart rate 108. EKG does show some right axis deviation Underwent stress test (Lexiscan) 03/09/25 AM; preliminary results negative for ischemia Patient completed stress test in 2002 which was unremarkable at the time Continue metoprolol succinate, nifedipine Outpatient sleep study recommended Echocardiogram Optimal diabetes management Discontinued therapeutic Lovenox, can consider prophylactic Lovenox if patient not ambulatory Outpatient follow up with cardiology recommended Additional plan as per the hospital course. Plan discussed with: Patient Date of Service: Mar 10, 2025 Billing Provider: DEIDRA AHN MD Cardiology Common Codes: [id number] INP/OBS CARE (High) DEIDRA AHN MD Mar 10, 2025 14:04
[2025-03-11 01:00] VITALS: BP 147/93; PULSE 105; RESP 20; TEMP 98.2; O2SAT 96
[2025-03-11 05:00] VITALS: BP 145/86; PULSE 86; RESP 17; TEMP 98.2; O2SAT 91
[2025-03-11 08:00] VITALS: PULSE 70; PULSE 96; RESP 17; O2SAT 96
[2025-03-11 08:35] VITALS: BP 136/81; PULSE 78; RESP 19; TEMP 97.6; O2SAT 94
--- NOTE | 2025-03-11 11:36 | DVHPN2 ---
Subjective The patient is seen and examined at bedside. Complain of back pain and right- sided abdominal pain. Complained that the pain in the back radiating to the leg bilateral. Reviewed: Care Plan, H&P, Labs, Medications, Previous Orders, Radiology Objective Vitals Vital Signs Date Time Temp Pulse Resp B/P (MAP) Pulse Ox O2 Delivery O2 Flow Rate FiO2 03/11/25 10:49 78 136/81 03/11/25 08:35 97.6 19 94 97.6 03/10/25 20:00 Room Air* 0 21 Intake/Output Intake and Output 03/11/25 07:00 Intake Total 2800 ml Output Total 1200 ml Balance 1600 ml Intake Oral 2800 ml Output Urine Total 1200 ml # Voids 2 # Bowel Movements 2 General Appearance: Alert, Oriented X3 HEENT: Atraumatic, PERRLA, EOMI, Mucous membr. moist/pink Neck: Supple Lungs: Clear to auscultation Cardiovascular: Regular rate, Normal S1, Normal S2 Abdomen: Normal bowel sounds, Soft, No tenderness Neuro: Cranial nerves 3-12 NL Psych/Mental Status: Mental status NL Medications Current Medications Medications Dose Ordered Sig/Heather Route Start Time Stop Time Status Last Admin Dose Admin Nitroglycerin 0.4 mg Q5MINP PRN SL 03/07/25 19:00 Morphine Sulfate 2 mg Q30M PRN IV 03/07/25 19:00 Furosemide 40 mg DAILY PO 03/08/25 10:00 03/11/25 10:48 40 MG Nifedipine 30 mg DAILY PO 03/08/25 10:00 03/11/25 10:49 30 MG Gabapentin 300 mg Q6HP PRN PO 03/07/25 19:30 03/10/25 17:00 300 MG Metoprolol Succinate 25 mg DAILY PO 03/08/25 10:00 03/11/25 10:49 25 MG Trazodone HCl 150 mg HS PO 03/07/25 22:00 03/10/25 21:51 150 MG Hydralazine HCl 10 mg Q6HP PRN PO 03/07/25 19:30 03/08/25 07:56 10 MG Enoxaparin Sodium 100 mg Q12HR SC 03/07/25 22:00 Hold 03/09/25 09:51 100 MG Pantoprazole Sodium 40 mg DAILY IV 03/08/25 10:00 03/11/25 10:47 40 MG Acetaminophen 650 mg Q4HPRN PRN PO 03/08/25 01:45 03/09/25 09:53 650 MG Acetaminophen/ Hydrocodone Bitart 1 tab Q6HPRN PRN PO 03/08/25 08:15 03/11/25 11:02 1 TAB Diagnostic Test (Pha) 1 strip ACHS 03/08/25 17:00 03/11/25 10:56 1 STRIP Insulin Human Regular ACHS SC 03/08/25 17:00 03/11/25 10:56 3 UNITS Dextrose 50 ml UD PRN IV 03/08/25 15:15 Clonazepam 1 mg Q8HP PRN PO 03/08/25 16:45 03/10/25 00:11 1 MG Laboratory Results Laboratory Tests 03/07/25 14:50 Urinalysis Test 03/07/25 14:06 Urine Color Yellow (Yellow) Urine Clarity Turbid (Clear) H Urine pH 5.5 (5.0-9.0) Urine Specific [place] 1.027 (1.001-1.035) Urine Protein Trace (Negative) H Urine Ketones 1+ (Negative) H Urine Blood Negative /uL (Negative) Urine Nitrite Negative (Negative) Urine Bilirubin Negative (Negative) Urine Urobilinogen Normal mg/dL (Negative) Urine Leukocyte Esterase Negative /uL (Negative) Urine RBC 1 /hpf (0 - 3) Urine Microscopic WBC 3 /HPF (0-3) Urine Squamous Epithelial Cells Few /hpf (<5) Urine Bacteria None seen /hpf (None Seen) Urine Mucus Few (None Seen) Urine Glucose Normal mg/dL (Normal) Assessment/Plan Assessment/Plan Hypertensive Emergency Severe headache secondary to above Diabetes mellitus, GERD Sciatica nerve New AFIB, patient unware of this diagnosis - [id number] : 2 in a male Morbid obesity, BMI: 42 ? CHF Insulin per protocol Cardiology consulted>stress test today echo reviewed and normal EF continue oral nifedipine, metoprolol, lasix Continuing with pain medication. I probably will give him some short-term steroid to see if this help with the sciatic nerve. We will order an x-ray of lumbar spine. Waiting for Stress test to be done. Discharge planning. This medical document was created using an electronic medical record system with [employer] direct computerized dictation system. Although this document has been carefully reviewed, there may still be some phonetic and typographical errors. These areas are purely typographical due to imperfections of the software programs, and do not reflect any compromise in the patient's medical care. My Orders Orders - GREGORY PACHECO MD Procedure Category Date Status Time Lumbar Spine 3 View XY 03/10/25 Resulted 13:06 Soc Telemed Psych CONS 03/10/25 Transmitted Consult 13:06 GREGORY PACHECO MD Mar 11, 2025 11:36
[2025-03-11] MEDS: FLUoxetine HCL 20 MG CAP PO SCH (11:45)
--- NOTE | 2025-03-11 11:55 | DVHPNRES ---
Progress Note Date Seen: Mar 11, 2025 Resident Creating Document: MARTHA SINGH RESIDENT Medical Necessity Reason Pt with a Central, PICC or Fol: No Subjective Review of Systems Patient seen and examined at bedside. Notes improvement in general symptoms. Continues to have a sad and tearful affect. Objective vital signs Vital Sign Date Time Temp Pulse Resp B/P (MAP) Pulse Ox O2 Delivery O2 Flow Rate FiO2 03/11/25 10:49 78 136/81 03/11/25 08:35 97.6 19 94 97.6 03/10/25 20:00 Room Air* 0 21 Total Intake and Output 03/10/25 03/10/25 03/11/25 14:59 22:59 06:59 Intake Total 1200 ml 1600 ml Output Total 1200 ml Balance 1200 ml 400 ml medications Current Medications Medications Dose Ordered Sig/Heather Route Start Time Stop Time Status Last Admin Dose Admin Nitroglycerin 0.4 mg Q5MINP PRN SL 03/07/25 19:00 Morphine Sulfate 2 mg Q30M PRN IV 03/07/25 19:00 Furosemide 40 mg DAILY PO 03/08/25 10:00 03/11/25 10:48 40 MG Nifedipine 30 mg DAILY PO 03/08/25 10:00 03/11/25 10:49 30 MG Gabapentin 300 mg Q6HP PRN PO 03/07/25 19:30 03/10/25 17:00 300 MG Metoprolol Succinate 25 mg DAILY PO 03/08/25 10:00 03/11/25 10:49 25 MG Trazodone HCl 150 mg HS PO 03/07/25 22:00 03/10/25 21:51 150 MG Hydralazine HCl 10 mg Q6HP PRN PO 03/07/25 19:30 03/08/25 07:56 10 MG Enoxaparin Sodium 100 mg Q12HR SC 03/07/25 22:00 Hold 03/09/25 09:51 100 MG Pantoprazole Sodium 40 mg DAILY IV 03/08/25 10:00 03/11/25 10:47 40 MG Acetaminophen 650 mg Q4HPRN PRN PO 03/08/25 01:45 03/09/25 09:53 650 MG Acetaminophen/ Hydrocodone Bitart 1 tab Q6HPRN PRN PO 03/08/25 08:15 03/11/25 11:02 1 TAB Diagnostic Test (Pha) 1 strip ACHS 03/08/25 17:00 03/11/25 10:56 1 STRIP Insulin Human Regular ACHS SC 03/08/25 17:00 03/11/25 10:56 3 UNITS Dextrose 50 ml UD PRN IV 03/08/25 15:15 Clonazepam 1 mg Q8HP PRN PO 03/08/25 16:45 03/10/25 00:11 1 MG Fluoxetine HCl 20 mg DAILY PO 03/11/25 11:45 Examination General Appearance: Cooperative. Well developed. Well nourished. NAD Head Exam: Normal inspection Neck Exam: Normal inspection. Non-tender. Normal alignment Pulmonary/Respiratory: Chest non-tender. Clear bilateral breath sounds, no crackles, no wheezing. Cardiovascular/Chest: Regular rate and rhythm. No murmurs. Peripheral Pulses: 2+ Radial (R). 2+ Radial (L). 2+ Pedal (R). 2+ Pedal (L) Abdominal Exam: Normal bowel sounds. Soft. normal abdomen, no visible veins, Nontender. No hepatospenomegaly. No masses Ankle Exam: Negative ankle edema Neuro/Mental Status: A&O x4. Coherent. Thoughts/Psych: Normal thought pattern. Sad affect, tearful affect. Denies any suicidal or homicidal ideation Skin Exam: Normal inspection. Normal color. Warm. Dry laboratory and microbiology Laboratory Tests 03/07/25 14:50 Test 03/07/25 14:50 Range/Units Serum Glucose 133 H 74-106 mg/dL Labs and/or images reviewed: Labs reviewed by me, Image(s) reviewed by me Problem List/Assessment/Plan Problem List/Assessment/Plan Hypertensive emergency Type 2 diabetes, A1c 8.4 ASCVD 39.8% Plan: Patient was noted to be in normal sinus rhythm, EKG machine read as atrial fibrillation, however, patient continues to be in normal sinus rhythm with highest heart rate 108. EKG does show some right axis deviation Underwent stress test (Lexiscan) 03/09/25 AM; preliminary results negative for ischemia Patient completed stress test in 2002 which was unremarkable at the time Continue metoprolol succinate, nifedipine Outpatient sleep study recommended Echocardiogram Optimal diabetes management Discontinued therapeutic Lovenox, can consider prophylactic Lovenox if patient not ambulatory Outpatient follow up with cardiology recommended Thank you so much for the opportunity to consult on your patient. Cardiology team will follow the patient. In case of any questions or concerns please feel free to reach out. Plan discussed with Dr. Ahn Plan discussed with: Patient, Other (RN) Visit Coding Cardiology RES Date of Service: Mar 11, 2025 Billing Provider: DEIDRA AHN MD Cardiology Common Codes: [id number] HOSP CARE([facility] Mar 11, 2025 11:55
[2025-03-11] MEDS ORDERED: ARIP20TA4 PO (12:38)
[2025-03-11] MEDS ORDERED: FLUO-470 PO (12:38)
[2025-03-11 12:45] VITALS: BP 160/84; PULSE 86; RESP 19; TEMP 97.8; O2SAT 97
[2025-03-11] MEDS ORDERED: APIX5TAB PO (12:47)
--- NOTE | 2025-03-11 14:16 | DVHPN2 ---
Consult Progress Note Date Seen: Mar 11, 2025 Subjective Other Systems: Patient was seen and evaluated in follow up. No overnight events. Patient is complaining of back and RLQ abdominal pain. Back pain radiates down his legs. BS in the 190's. Telemetry reviewed. Objective vital signs Vital Sign Date Time Temp Pulse Resp B/P (MAP) Pulse Ox O2 Delivery O2 Flow Rate FiO2 03/11/25 10:49 78 136/81 03/11/25 08:35 97.6 19 94 97.6 03/11/25 08:00 Room Air* 0 21 Total Intake and Output 03/10/25 03/10/25 03/11/25 15:00 23:00 07:00 Intake Total 1200 ml 1600 ml Output Total 1200 ml Balance 1200 ml 400 ml medications Current Medications Medications Dose Ordered Sig/Heather Route Start Time Stop Time Status Last Admin Dose Admin Nitroglycerin 0.4 mg Q5MINP PRN SL 03/07/25 19:00 Morphine Sulfate 2 mg Q30M PRN IV 03/07/25 19:00 Furosemide 40 mg DAILY PO 03/08/25 10:00 03/11/25 10:48 40 MG Nifedipine 30 mg DAILY PO 03/08/25 10:00 03/11/25 10:49 30 MG Gabapentin 300 mg Q6HP PRN PO 03/07/25 19:30 03/10/25 17:00 300 MG Metoprolol Succinate 25 mg DAILY PO 03/08/25 10:00 03/11/25 10:49 25 MG Trazodone HCl 150 mg HS PO 03/07/25 22:00 03/10/25 21:51 150 MG Hydralazine HCl 10 mg Q6HP PRN PO 03/07/25 19:30 03/08/25 07:56 10 MG Enoxaparin Sodium 100 mg Q12HR SC 03/07/25 22:00 Hold 03/09/25 09:51 100 MG Pantoprazole Sodium 40 mg DAILY IV 03/08/25 10:00 03/11/25 10:47 40 MG Acetaminophen 650 mg Q4HPRN PRN PO 03/08/25 01:45 03/09/25 09:53 650 MG Acetaminophen/ Hydrocodone Bitart 1 tab Q6HPRN PRN PO 03/08/25 08:15 03/11/25 11:02 1 TAB Diagnostic Test (Pha) 1 strip ACHS 03/08/25 17:00 03/11/25 10:56 1 STRIP Insulin Human Regular ACHS SC 03/08/25 17:00 03/11/25 10:56 3 UNITS Dextrose 50 ml UD PRN IV 03/08/25 15:15 Clonazepam 1 mg Q8HP PRN PO 03/08/25 16:45 03/10/25 00:11 1 MG Fluoxetine HCl 20 mg DAILY PO 03/11/25 11:45 Examination: GENERAL:Normal, HEENT:Normal, NECK:Normal, LUNGS:Normal, CVS:Normal, ABDOMEN:Normal, MSK:Normal, NEURO:Normal laboratory and microbiology Laboratory Tests 03/07/25 14:50 Test 03/07/25 14:50 Range/Units Serum Glucose 133 H 74-106 mg/dL Problem List/Assessment/Plan Problem List/Assessment/Plan Assessment Hypertensive emergency. Type 2 diabetes, A1c 8.4. ASCVD 39.8%. Plan/Recommendation I agree with your ongoing assessment and care of plan. Patient has been seen by Javier Malhotra, resident on my behalf. We have discussed the plan with the patient. Patient was noted to be in normal sinus rhythm, EKG machine read as atrial fibrillation, however, patient continues to be in normal sinus rhythm with highest heart rate 108. EKG does show some right axis deviation. Underwent stress test (Lexiscan) 03/09/25 AM; preliminary results negative for ischemia. Patient completed stress test in 2002 which was unremarkable at the time. Continue metoprolol succinate, nifedipine. Outpatient sleep study recommended. Echocardiogram. Optimal diabetes management Discontinued therapeutic Lovenox, can consider prophylactic Lovenox if patient not ambulatory. Outpatient follow up with cardiology recommended. Additional plan as per the hospital course. Plan discussed with: Patient Date of Service: Mar 11, 2025 Billing Provider: DEIDRA AHN MD Cardiology Common Codes: [id number] INP/OBS CARE (High) DEIDRA AHN MD Mar 11, 2025 13:24
[2025-03-12] MEDS ORDERED: METF-371 PO (11:32)
[2025-03-12] MEDS ORDERED: FURO1TAB31 PO (11:32)
[2025-03-12] MEDS ORDERED: GABA-1250 PO (11:32)
[2025-03-12] MEDS ORDERED: LOVA10TA54 PO (11:32)
[2025-03-12] MEDS ORDERED: CAPT12.52 PO (11:33)
--- NOTE | 2025-03-16 12:33 | DVHDS2 ---
Discharge Summary Date of Admission Mar 07, 2025 at 18:46 Date of Discharge: Mar 11, 2025 Admitting Diagnosis Hypertensive Emergency Severe headache secondary to above Diabetes mellitus, GERD Sciatica New AFIB, patient unware of this diagnosis - [id number] : 2 in a male Morbid obesity, BMI: 42 ? CHF Labs/Diagnostic Data: Laboratory Results Test 03/11/25 10:55 03/08/25 16:20 03/08/25 13:28 03/08/25 04:11 POC Glucose 198 mg/dl (70-106) Troponin I High Sensitivity 6 ng/L (</=54) Total Bilirubin 0.3 mg/dL (0.2-1.0) Direct Bilirubin < 0.1 mg/dL (<0.3) Aspartate Amino Transferase (AST) 36 U/L (<34) Alanine Aminotransferase (ALT) 57 U/L (7-40) Alkaline Phosphatase 75 U/L (46-116) Total Protein 7.7 g/dL (5.7-8.2) Albumin 4.7 g/dL (3.2-4.8) Triglycerides Level 163 mg/dL (< 150) Cholesterol Level 154 mg/dL (< 200) LDL Cholesterol 105 mg/dL (< 100) HDL Cholesterol 31 mg/dL (40-59) Hepatitis B Surface Antigen Negative (Negative) Hepatitis C Antibody Negative (Negative) Test 03/07/25 14:50 03/07/25 14:06 White Blood Count 9.3 10^3/uL (4.4-10.8) Red Blood Count 5.00 10^6/uL (4.5-5.90) Hemoglobin 14.8 g/dL (13.5-17.5) Hematocrit 42.0 % (41.0-53.0) Mean Corpuscular Volume 84.1 fL (80.0-100.0) Mean Corpuscular Hemoglobin 29.6 pg (28.0-32.0) Mean Corpuscular Hemoglobin Concent 35.2 g/dL (32.0-36.0) Red Cell Distribution Width 14.6 % (11.8-14.3) Platelet Count 336 10^3/uL (140-450) Mean Platelet Volume 9.9 fL (6.9-10.8) Neutrophils (%) (Auto) 59.5 % (37.0-80.0) Lymphocytes (%) (Auto) 29.9 % (10.0-50.0) Monocytes (%) (Auto) 6.6 % (0.0-12.0) Eosinophils (%) (Auto) 3.3 % (0.0-7.0) Basophils (%) (Auto) 0.7 % (0.0-2.0) Neutrophils # (Auto) 5.5 10 ^3/uL (1.6-8.6) Lymphocytes # (Auto) 2.8 10 ^3/uL (0.4-5.4) Monocytes # (Auto) 0.6 10 ^3/uL (0-1.3) Eosinophils # (Auto) 0.3 10 ^3/uL (0-0.8) Basophils # (Auto) 0.1 10 ^3/uL (0-0.2) Nucleated Red Blood Cells 0.8 % Sodium Level 141 mmol/L (136-145) Potassium Level 3.9 mmol/L (3.5-5.1) Chloride Level 107 mmol/L (98-107) Carbon Dioxide Level 20 mmol/L (20-31) Anion Gap 14 (5-15) Blood Urea Nitrogen 15 mg/dL (9-23) Creatinine 0.96 mg/dL (0.700-1.30) Glomerular Filtration Rate Calc 90 mL/min (>90) BUN/Creatinine Ratio 15.6 (10.0-20.0) Serum Glucose 133 mg/dL (74-106) Hemoglobin A1c 8.4 % A1C (<5.7) Calcium Level 10.3 mg/dL (8.7-10.4) Magnesium Level 1.6 mg/dL (1.6-2.6) B-Type Natriuretic Peptide 19.41 pg/mL (0-100) Thyroid Stimulating Hormone (TSH) 2.78 uIU/mL (0.55-4.78) Urine Color Yellow (Yellow) Urine Clarity Turbid (Clear) Urine pH 5.5 (5.0-9.0) Urine Specific [place] 1.027 (1.001-1.035) Urine Protein Trace (Negative) Urine Ketones 1+ (Negative) Urine Blood Negative /uL (Negative) Urine Nitrite Negative (Negative) Urine Bilirubin Negative (Negative) Urine Urobilinogen Normal mg/dL (Negative) Urine Leukocyte Esterase Negative /uL (Negative) Urine RBC 1 /hpf (0 - 3) Urine Microscopic WBC 3 /HPF (0-3) Urine Squamous Epithelial Cells Few /hpf (<5) Urine Bacteria None seen /hpf (None Seen) Urine Mucus Few (None Seen) Urine Glucose Normal mg/dL (Normal) Urine Opiates Screen Neg (NEGATIVE) Urine Fentanyl Screen Neg (NEGATIVE) Urine Barbiturates Screen Neg (NEGATIVE) Urine Phencyclidine Screen Neg (NEGATIVE) Urine Amphetamines Screen Neg (NEGATIVE) Urine Benzodiazepines Screen Neg (NEGATIVE) Urine Cocaine Screen Neg (NEGATIVE) Urine Cannabinoids Screen Neg (NEGATIVE) Other Laboratory Tests 03/07/25 14:50 Brief Hx & Hospital Course: This is a 59 years old male with past medical history hypertension, diabetes type 2, GERD came to emergency department because blood pressure is elevated at home. According to the patient he woke up with severe headache, heart palpitation and diaphoresis. His blood pressure at home was 185/115. The patient took nifedipine, metoprolol and rest. His blood pressure improved but still elevated. In the ER blood pressure was checked again in his was 164/69. The patient was given hydralazine and was admitted to the hospital for further evaluation. His CT head showed no acute CVA. Chest x-ray is unremarkable. Blood pressure improved after receive IV hydralazine and nifedipine and metoprolol as per home dose. The patient EKG showed atrial fibrillation. The patient denied any known history AFib. Echo was done showed EF of 65% with aortic sclerosis not stenosis. Dr. [place] Giles see the patient recommend continuing metoprolol. Also add to his regimen Eliquis for AFib. Continuing captopril. The patient subsequently doing well. Blood pressure is controlled today. The patient did not complain of any headache. I am going to discharge the patient home. Advised the patient to follow up with primary care physician 1-2 weeks. Follow up with Dr. Berlin Giles per schedule. Follow up echo every 12 months to 24 month to follow up with aortic valve. Activity as tolerated. Diet low-salt low-cholesterol 2000 ADA calorie diet. The patient also complained of depression. Tele psychiatrist see the patient and recommend continuing Prozac. We will send a new prescription for his antidepressant medication Physical exam: HEENT: Normocephalic atraumatic pupils equal react to light and accommodation. Extraocular muscles intact, conjunctiva pink, oropharynx moist, no thrush, no exudate. Lymphatic: No lymphadenopathy Cardiovascular exam: S1, S2 was heard. No murmurs, rubs, gallops Lung: Clear on auscultation bilaterally, no wheeze, rale, rhonchi. GI: Abdominal soft, nondistended, nontenderness, positive bowel sounds. Extremity: No crepitus, cyanosis, edema. Pedal pulses present bilateral. Full range of motion. Skin: Normal turgor, no rash. Psych: Alert, oriented x3. Neurology: No focal deficits, cranial nerve II to XII grossly intact. This medical document was created using an electronic medical record system with [employer] direct computerized dictation system. Although this document has been carefully reviewed, there may still be some phonetic and typographical errors. These areas are purely typographical due to imperfections of the software programs, and do not reflect any compromise in the patient's medical care. Condition at Discharge: Stable Final Diagnosis/Problems List Hypertensive Emergency Severe headache secondary to above Diabetes mellitus, GERD Sciatica New AFIB, patient unware of this diagnosis - [id number] : 2 in a male Morbid obesity, BMI: 42 ? CHF Discharge Disposition: Home Discharge Instruct/Medications Diet: Cardiac 2g Na,low cholest Activity: No Restrictions, As Tolerated Follow Up/Referral: pcp 1-2 weeks cardiology per schedule Medications: See new medication list Resume home meds Discharge Statement: "Patient was advised to return to the ER or call 911 if any headaches, dizziness, shortness of breath, chest pain, abdominal pain, bleeding, fevers, or worsening of medical condition. Patient was counseled about treatment plan, medications, possible side effects, patientverbalized understanding. All questions were answered to the best of my ability. This discharge took greater then 30 minutes in planning, reviewing documentation, counseling the patient, and discussing with other team members." ASSESSMENT ASSESSMENT Assessment Afib Chest pain Date of Service: Mar 11, 2025 Billing Provider: GREGORY PACHECO MD Common Visit Codes: [id number] DISCH DAY >30min GREGORY PACHECO MD Mar 16, 2025 12:33
== END 2025-03-11 17:00 | disposition home or self-care (01) | DRG 199 ==
LOC: ER 13:56 → OVERFLOW 18:46 → TELE-WESTW 03-08 15:10
PROVIDERS: ADMIT Internal Medicine; ATTEND Internal Medicine
DX: I16.1 Hypertensive emergency (principal); I50.9 Heart failure, unspecified; E11.9 Type 2 diabetes mellitus without complications; E66.01 Morbid (severe) obesity due to excess calories; I11.0 Hypertensive heart disease with heart failure; F32.9 Major depressive disorder, single episode, unspecified; Z68.41 Body mass index [BMI] 40.0-44.9, adult; K21.9 Gastro-esophageal reflux disease without esophagitis; M54.30 Sciatica, unspecified side; I48.91 Unspecified atrial fibrillation; I25.10 Atherosclerotic heart disease of native coronary artery without angina pectoris; F41.0 Panic disorder [episodic paroxysmal anxiety]; Z83.3 Family history of diabetes mellitus; Z82.49 Family history of ischemic heart disease and other diseases of the circulatory system; Z59.00 Homelessness unspecified; Z88.8 Allergy status to other drugs, medicaments and biological substances
CPT/HCPCS: 36415; 70450; 71045; 72100; 80048; 80061; 80076; 80307; 81001; 82962; 83036; 83735; 83880; 84443; 84484; 85025; 86803; 87340; 93005; 93017; 93306; 96361; 96374; 99291; G0378; J1815; J2470

== ENCOUNTER 2025-03-28 14:49 | Emergency (ER) | payer MEDICAID, OTHER ==
[~2025-03-28] VITALS: Ht 185.4 cm; Wt 144.1 kg
[~2025-03-28 14:49] MED LIST changes: +APIX5TAB PO; +ARIP20TA4 PO; +CAPT12.52 PO; +CLON-857 PO; +FLUO-470 PO; +FURO1TAB31 PO; +GABA-1250 PO; +LOVA10TA54 PO; +METF-371 PO
[2025-03-28] MEDS ORDERED: CAPT12.52 PO (15:15)
[2025-03-28] MEDS ORDERED: METO25TA93 PO (15:15)
[2025-03-28] MEDS ORDERED: LOVA10TA2 PO (15:15)
--- NOTE | 2025-03-28 15:19 | ED.PDOC ---
History of Present Illness HPI Comments 59 y.o male with PMHx of HTN and HLD, presents to the ED for an evaluation of high blood pressure associated with SOB and a generalized headache. Patient checked his blood pressure this morning which read 187/102 and took an extra 2-3 doses of his BP medication. Patient mentions taking extra doses when he see his blood pressure is elevated and is being cared for by a PCP in [place]. Patient reports he travel a lot, is going to be in [place] in a week and is requesting to refill medication until he is able to see his PCP then. Patient was admitted 8 days ago for same complaint at this ED and diagnosed with AFIB. Patient was sent home with medication for his new diagnosis but states he ran out of the medication as well. He denies any chest pain, fever, chills, nausea, vomiting, or leg swelling. Chief Complaint: High Blood Pressure Time Seen by MD: 15:03 Primary Care Provider: DENIES Reviewed Notes: Nurses Notes, Medications, Allergies Allergies: Uncoded Allergies: NASAL DECONGESTANT (Allergy, Mild, 05/06/11) Home Meds Active Scripts Lovastatin (Mevacor) 10 Mg Tab, 1 TAB PO DAILY, #30 TAB 5 Refills Prov:NATALIYA JONES MD 03/28/25 Captopril (Captopril) 12.5 Mg Tab, 12.5 MG PO BID for 30 Days, #60 TAB Prov:NATALIYA JONES MD 03/28/25 Metoprolol Succinate (Metoprolol Succinate Er) 25 Mg Tab, 1 TAB PO DAILY, #30 TAB 5 Refills Prov:NATALIYA JONES MD 03/28/25 Captopril (Captopril) 12.5 Mg Tab, 12.5 MG PO BID for 30 Days, #60 TAB 1 Refill Prov:EVE PERRY RESIDENT 03/12/25 Metformin Hydrochloride (Metformin Hcl) 850 Mg Tab, 850 MG PO 2XW for 30 Days, #30 TAB 1 Refill Prov:EVE PERRY RESIDENT 03/12/25 Lovastatin (Lovastatin) 10 Mg Tab, 10 MG PO DAILY for 30 Days, #30 TAB 1 Refill Prov:EVE PERYR RESIDENT 03/12/25 Furosemide (Lasix) 40 Mg Tab, 40 MG PO DAILY for 30 Days, #30 TAB Prov:EVE PERRY RESIDENT 03/12/25 Gabapentin (Gabapentin) 300 Mg Cap, 1 CAP PO TID for 30 Days, #90 CAP 3 Refills Prov:EVE PERYR RESIDENT 03/12/25 Apixaban Base (ELIQUIS) 5 Mg Tab, 5 MG PO BID, #60 TAB 5 Refills Prov:GREGORY PACHECO MD 03/11/25 Aripiprazole (Abilify) 20 Mg Tab, 1 TAB PO DAILY, #30 TAB 1 Refill Prov:GREGORY PACHECO MD 03/11/25 Fluoxetine HCl (Fluoxetine HCl) 20 Mg Cap, 20 MG PO DAILY, #30 CAP 5 Refills Prov:GREGORY PACHECO MD 03/11/25 Nifedipine (Nifedipine ER) 30 Mg Tab, 30 MG PO DAILY for 90 Days, #90 TAB 3 Refills Prov:PB OSORIO MD 03/06/25 Metoprolol Succinate (Metoprolol Succinate Er) 25 Mg Tab, 1 TAB PO DAILY, #90 TAB 3 Refills Prov:PB OSORIO MD 03/06/25 Gabapentin (Once-Daily) (Gabapentin) 300 Mg Tab, 300 MG PO Q6HP PRN, #90 TAB 3 Refills Prov:PB OSORIO MD 03/06/25 Hydroxyzine HCl (Hydroxyzine Hydrochloride) 50 Mg Tab, 50 MG PO QHSP PRN, #60 TAB Prov:PB OSORIO MD 03/06/25 Trazodone Hcl (Trazodone Hcl) 150 Mg Tab, 1 TAB PO QPM for 90 Days, #90 TAB 3 Refills Prov:PB OSORIO MD 03/06/25 Reported Medications Clonazepam (Clonazepam) 2 Mg Tab, 2.5 MG PO PRN PRN for ANXIETY, TAB 03/08/25 Metformin Hydrochloride (Metformin Hcl) 850 Mg Tab, 850 MG PO 2XW for diabetes for 30 Days, MG 03/08/25 Multiple Vitamins W/ Minerals (Vitamins & Minerals) Minerals Tab 05/06/11 Furosemide (Furosemide) 40 Mg Tab 05/06/11 Ibuprofen (Ibu) 600 Mg Tab 05/06/11 Lovastatin (Lovastatin) 10 Mg Tab 05/06/11 Captopril (Capoten) 12.5 Mg Tb 05/05/11 Information Source: Patient Mode of Arrival: Ambulatory Severity: Moderate Timing: Hours Duration: Since onset Medication Refill: Ran out of Medication, For: Hypertension Past Medical History PAST MEDICAL HISTORY: Anxiety, Depression, GERD, High Lipids, HTN Family History Family History: Unknown Social History Smoker: Non-Smoker Alcohol: Occasionally Drugs: Denies Drug Use Lives In: Home Constitutional: denies: chills, diaphoresis, fatigue, fever, malaise, sweats, weakness, others EENTM: denies: blurred vision, double vision, ear bleeding, ear discharge, ear drainage, ear pain, ear ringing, eye pain, eye redness, hearing loss, mouth pain, mouth swelling, nasal discharge, nose bleeding, nose congestion, nose pain, photophobia, tearing, throat pain, throat swelling, voice changes, others Respiratory: reports: shortness of breath; denies: cough, hemoptysis, orthopnea, SOB at rest, SOB with excertion, stridor, wheezing, others Cardiovascular: denies: chest pain, dizzy spells, diaphoresis, Dyspnea on exertion, edema, irregular heart beat, left arm pain, lightheadedness, palpitations, PND, syncope, others Gastrointestinal: denies: abdomen distended, abdominal pain, blood streaked bowels, constipated, diarrhea, dysphagia, difficulty swallowing, hematemesis, melena, nausea, poor appetite, poor fluid intake, rectal bleeding, rectal pain, vomiting, others Genitourinary: denies: burning, dysuria, flank pain, frequency, hematuria, incontinence, penile discharge, penile sore, pain, testicle pain, testicle swelling, urgency, others Neurological: reports: headache; denies: dizziness, fainting, left sided numbness, left sided weakness, numbness, paresthesia, pre-existing deficit, right sided numbness, right sided weakness, seizure, speech problems, tingling, tremors, weakness, others Musculoskeletal: denies: back pain, gout, joint pain, joint swelling, muscle pain, muscle stiffness, neck pain, others Integumetry: denies: bruises, change in color, change in hair/nails, dryness, laceration, lesions, lumps, rash, wounds, others Allergic/Immunocompromised: denies: Difficulty Healing, Frequent Infections, Hives, Itching, others Hematologic/Lymphatic: denies: anemia, blood clots, easy bleeding, easy bruising, swollen glands, others Endocrine: denies: excessive hunger, excessive sweating, excessive thirst, excessive urination, flushing, intolerance to cold, intolerance to heat, unexplained weight gain, unexplained weight loss, others Psychiatric: denies: anxiety, bipolar disorder, depression, hopeless, panic disorder, schizophrenia, sleepless, suicidal, others All Other Systems: Reviewed and Negative Physical Exam General Appearance: No Apparent Distress HEENT: Normal ENT Inspection, Pharynx Normal, TMs Normal Neck: Full Range of Motion, Non-Tender, Normal, Normal Inspection Respiratory: Chest Non-Tender, Lungs Clear, No Accessory Muscle Use, No Respiratory Distress, Normal Breath Sounds Cardiovascular: No Edema, No JVD, No Murmur, No Gallop, Normal Peripheral Pulses, Regular Rate/Rhythm Breast Exam: Deferred Gastrointestinal: No Organomegaly, Non Tender, No Pulsatile Mass, Normal Bowel Sounds, Soft Genitalia: Deferred Pelvic: Deferred Rectal: Deferred Extremities: No calf tenderness, Normal capillary refill, Normal inspection, Normal range of motion, Non-tender, No pedal edema Musculoskeletal : Apperance: Normal Neurologic: Alert, booker II-XII nml as Tested, No Motor Deficits, Normal Affect, Normal Mood, No Sensory Deficits Cerebellar Function: Normal Reflexes: Normal Skin: Dry, Normal Color, Warm Lymphatic: No Adenopathy Was a procedure done? Was a procedure done?: No Differential Dx Considerations may include: Dehydration, Electrolyte imbalance, Migraines, anxiety, HTN accelerated, HTN essential X-Ray, Labs, Meds, VS Vital Signs Date Time Temp Pulse Resp B/P (MAP) Pulse Ox O2 Delivery O2 Flow Rate FiO2 03/28/25 15:07 97.7 97 21 130/65 (86) 97 97.7 The patient is being discharged The patient's blood pressure is now within normal range The patient will follow up with the primary care doctor The patient will return to the emergency department's the condition worsens. The patient understands and agrees with the management. Time of 1ST Reevaluation: 15:19 Reevaluation 1ST: Unchanged Patient Education/Counseling: Diagnosis, Treatment, Prognosis, Need For Follow Up Family Education/Counseling: No Family Present SEPSIS Sepsis Screen Date sepsis recognized/suspect: Mar 28, 2025 Time Sepsis recognized/suspect: 1500 Recent Procedure: No On Antibiotic Therapy: No Respiratory Rate >20: No Heart Rate >90: No Temp<36 C (96.8 F) or >38.3 C: No SBP <90 or MAP <65 mmHG: No New Acute Mental Status Change: No Is the patient on CPAP, BIPAP,: No Vital Signs Date Time Temp Pulse Resp B/P (MAP) Pulse Ox O2 Delivery O2 Flow Rate FiO2 03/28/25 15:07 97.7 97 21 130/65 (86) 97 97.7 Departure 1 Departure Time of Disposition: 15:33 Impression: Primary Impression: Hypertensive urgency Disposition: 01 HOME / SELF CARE / HOMELESS Condition: Fair e-Prescriptions Lovastatin (Mevacor) 10 Mg Tab 1 TAB PO DAILY, #30 TAB 5 Refills Prov: NATALIYA JONES MD 03/28/25 Captopril (Captopril) 12.5 Mg Tab 12.5 MG PO BID for 30 Days, #60 TAB Prov: NATALIYA JONES MD 03/28/25 Metoprolol Succinate (Metoprolol Succinate Er) 25 Mg Tab 1 TAB PO DAILY, #30 TAB 5 Refills Prov: NATALIYA JONES MD 03/28/25 Discharged With: Self Critical Care Note Critical Care Time?: No Stability Stability form required: No I personally scribed for NATALIYA JONES MD ([email or web address]) on 03/28/25 at 15:19. Electronically submitted by Michelle Boyle ([facility]). NATALIYA JONES MD Mar 28, 2025 15:19
[2025-03-28 17:55] VITALS: BP 122/77; PULSE 83; RESP 16; TEMP 98.7; O2SAT 97
== END 2025-03-28 17:58 | disposition home or self-care (01) ==
LOC: ER 14:49
DX: I16.0 Hypertensive urgency (principal); I10 Essential (primary) hypertension; F41.9 Anxiety disorder, unspecified; F32.A Depression, unspecified; E78.5 Hyperlipidemia, unspecified; K21.9 Gastro-esophageal reflux disease without esophagitis; F10.90 Alcohol use, unspecified, uncomplicated; Z79.01 Long term (current) use of anticoagulants; Z76.0 Encounter for issue of repeat prescription; Z79.899 Other long term (current) drug therapy; Z88.8 Allergy status to other drugs, medicaments and biological substances; Y90.9 Presence of alcohol in blood, level not specified